=== PATIENT | male | born 1955 | race Caucasian/White ===

== ENCOUNTER 2017-10-09 06:01 | Emergency (ER) | payer OTHER ==
[2017-10-09] MEDS ORDERED: methylPREDNISolone SOD SUCCI 125 MG/2 ML VIAL IM ONE (06:34)
[2017-10-09] MEDS ORDERED: FAMOTIDINE 20 MG TAB PO STA (06:34)
--- NOTE | 2017-10-09 06:39 | ED ---
General Adult HPI - General Chief complaint: Allergic Reaction Stated complaint: Poss Allergic Reaction Time Seen by Provider: 10/09/17 06:23 Source: patient, family Mode of arrival: ambulatory Limitations: no limitations - History of Present Illness Initial comments: Patient is a pleasant 62-year-old male presenting to the emergency department with rash. Onset was around 3:30. Patient has noticed some swelling of his hands as well as rash on his arms. states it does itch. Patient took 2 Benadryl and states it is starting to improve. Patient denies any dyspnea. Patient states there may be some mild swelling of his lower lip and family is in agreement. No throat swelling. - Related Data Previous Rx's Medication Instructions Recorded predniSONE 20 mg PO BID #10 tab 10/09/17 Allergies Allergy/AdvReac Type Severity Reaction Status Date / Time DARRICK Inhibitors Allergy Swelling Verified 10/09/17 06:08 Penicillins Allergy Unknown Verified 10/09/17 06:07 Review of Systems ROS Statement: Those systems with pertinent positive or pertinent negative responses have been documented in the HPI. ROS Other: All systems not noted in ROS Statement are negative. Constitutional: Denies: fever Eyes: Denies: eye pain ENT: Denies: ear pain Respiratory: Denies: cough, dyspnea Cardiovascular: Denies: chest pain Endocrine: Denies: fatigue Gastrointestinal: Denies: abdominal pain Genitourinary: Denies: dysuria Musculoskeletal: Denies: back pain Skin: Reports: rash Neurological: Denies: weakness Past Medical History Past Medical History: Diabetes Mellitus, Hypertension History of Any Multi-Drug Resistant Organisms: None Reported Past Surgical History: Appendectomy, Orthopedic Surgery Past Psychological History: No Psychological Hx Reported Smoking Status: Current every day smoker Past Alcohol Use History: Occasional Past Drug Use History: None Reported General Exam Limitations: no limitations General appearance: alert, in no apparent distress Head exam: Present: atraumatic Eye exam: Present: normal appearance, PERRL ENT exam: Present: normal oropharynx, other (Mild edema of the lower lip. No swelling of the tongue or throat.) Neck exam: Present: normal inspection Respiratory exam: Present: normal lung sounds bilaterally Cardiovascular Exam: Present: regular rate, normal rhythm GI/Abdominal exam: Present: soft. Absent: tenderness Extremities exam: Present: other (Mild swelling bilateral hands with mild erythema. There is urticarial rash of the forearms, mild) Back exam: Present: normal inspection Neurological exam: Present: alert Psychiatric exam: Present: normal affect, normal mood Skin exam: Present: urticaria (Bilateral forearms, mild) Course Vital Signs 10/09/17 06:02 Temperature 97.3 F L Pulse Rate 87 Respiratory 18 Rate Blood Pressure 136/79 O2 Sat by Pulse 97 Oximetry Disposition Clinical Impression: Allergic reaction Disposition: HOME SELF-CARE Condition: Stable Instructions: Angioedema (ED), Urticaria (ED) Additional Instructions: Please follow-up with primary care physician in the next day or 2 for recheck. Continue [id number] Benadryl 4 times daily for the next 5 days. Return for increased swelling, swelling of the tongue or throat, difficulty breathing, worsening symptoms or other concerns. Prescriptions: predniSONE 20 mg PO BID #10 tab Referrals: Viet Mireles DO [Primary Care Provider] - 1-2 days Time of Disposition: 06:39
[2017-10-09 07:17] VITALS: BP 138/77; PULSE 81; RESP 19; TEMP 97.6
== END 2017-10-09 07:21 | disposition home or self-care (01) ==
LOC: EC 06:01
DX: T78.40XA Allergy, unspecified, initial encounter (principal); F17.200 Nicotine dependence, unspecified, uncomplicated; Z88.0 Allergy status to penicillin; Z88.8 Allergy status to other drugs, medicaments and biological substances
CPT/HCPCS: 99283; 96372; J2930

== ENCOUNTER 2018-12-20 14:41 | Emergency (ER) | payer OTHER ==
[2018-12-20 14:46] VITALS: BP 139/73; PULSE 84; RESP 18; TEMP 97.9
--- NOTE | 2018-12-20 15:12 | ED ---
General Adult HPI - General Chief complaint: Wound/Laceration Stated complaint: infection on leg Time Seen by Provider: 12/20/18 14:49 Source: patient, RN notes reviewed Mode of arrival: ambulatory Limitations: no limitations - History of Present Illness Initial comments: 63-year-old male with a past medical history of diabetes, hypertension presents to the emergency department for a chief complaint of right leg injury. Patient states that one week ago on Thursday he was at work when he fell and hit his leg against a piece of machinery. Patient states this caused a small abrasion. Patient states that he has been keeping it covered and applying bacitracin to the area. Patient saw his primary care provider 3 days ago for this. He thought it was infected and was started on Bactrim. Patient states it is already on the area and does not seem to be healing. Patient denies fevers or chills. He denies spreading or streaking redness. Denies any pain ambulating on the right leg.Patient has no other complaints at this time including shortness of breath, chest pain, abdominal pain, nausea or vomiting, headache, or visual changes. - Related Data Previous Rx's Medication Instructions Recorded predniSONE 20 mg PO BID #10 tab 10/09/17 Cephalexin [Keflex] 500 mg PO Q6HR 7 Days cap 12/20/18 Allergies Allergy/AdvReac Type Severity Reaction Status Date / Time DARRICK Inhibitors Allergy Swelling Verified 10/09/17 06:08 Penicillins Allergy Unknown Verified 10/09/17 06:07 Review of Systems ROS Statement: Those systems with pertinent positive or pertinent negative responses have been documented in the HPI. ROS Other: All systems not noted in ROS Statement are negative. Past Medical History Past Medical History: Diabetes Mellitus, Hypertension History of Any Multi-Drug Resistant Organisms: None Reported Past Surgical History: Appendectomy, Orthopedic Surgery Past Psychological History: No Psychological Hx Reported Smoking Status: Current every day smoker Past Alcohol Use History: Occasional Past Drug Use History: None Reported General Exam Limitations: no limitations General appearance: alert, in no apparent distress Head exam: Present: atraumatic, normocephalic, normal inspection Eye exam: Present: normal appearance, PERRL, EOMI. Absent: scleral icterus, conjunctival injection, periorbital swelling ENT exam: Present: normal exam, mucous membranes moist Neck exam: Present: normal inspection, full ROM. Absent: tenderness, meningismus, lymphadenopathy Respiratory exam: Present: normal lung sounds bilaterally. Absent: respiratory distress, wheezes, rales, rhonchi, stridor Cardiovascular Exam: Present: regular rate, normal rhythm, normal heart sounds. Absent: systolic murmur, diastolic murmur, rubs, gallop, clicks Extremities exam: Present: full ROM (full ROM in the ankle and knee of the RLE), normal capillary refill (cap refill < 2 seconds, dp pulse 2+ in the RLE), other (Patient has a small 2 cm x 1 cm abrasion over the distal right lower leg. There is a 5 cm x 5 cm area of surrounding erythema however this appears likely to be more granulation tissue rather than infection. It is somewhat warm over the area.). Absent: tenderness (no significant tenderness noted in the RLE), pedal edema, joint swelling, calf tenderness Neurological exam: Present: alert, oriented X3, CN II-XII intact Psychiatric exam: Present: normal affect, normal mood Course Vital Signs 12/20/18 14:42 Temperature 97.9 F Pulse Rate 84 Respiratory 18 Rate Blood Pressure 139/73 O2 Sat by Pulse 98 Oximetry Medical Decision Making - Medical Decision Making 63-year-old male presents to the emergency department for chief clean of abrasion of the right lower extremity times one week. Patient hit his leg against a piece of equipment. Patient has had Bactrim for 3 days because of the erythema surrounding the area. On exam patient does have a 5 cm x 5 cm area of erythema with 1 cm x 2 cm abrasion. This is likely more granulation tissue than infection. Patient is keeping the area covered with bacitracin applied which is likely contributing to this. Discussed with patient that I will add Keflex to cover any cellulitic component. However instructed patient to keep the area exposed to her stomach and dry and healed. Discussed that as patient is diabetic and this is lower in his calf he may have the start of a chronic wound that he will need to monitor this and follow-up with primary care closely to be seen at wound care. Discussed watching for any spreading or streaking redness, drainage, or fevers and returning here if this occurs. Disposition Clinical Impression: Abrasion, Cellulitis Disposition: HOME SELF-CARE Condition: Good Instructions (If sedation given, give patient instructions): Abrasion (ED) Additional Instructions: Please keep the area clean and dry. Try to leave it open to air so it can heal. Take Keflex as directed. Follow-up with primary care in 1-2 days. If he notices spreading redness, streaking redness, fevers, or any other worsening symptoms and return here to the emergency department. Prescriptions: Cephalexin [Keflex] 500 mg PO Q6HR 7 Days cap Is patient prescribed a controlled substance at d/c from ED?: No Referrals: Viet Mireles DO [Primary Care Provider] - 1-2 days Time of Disposition: 15:09
== END 2018-12-20 15:17 | disposition home or self-care (01) ==
LOC: EC 14:41
DX: S80.812A Abrasion, left lower leg, initial encounter (principal); L03.116 Cellulitis of left lower limb; E11.9 Type 2 diabetes mellitus without complications; I10 Essential (primary) hypertension; F17.200 Nicotine dependence, unspecified, uncomplicated; Z88.0 Allergy status to penicillin; Z88.8 Allergy status to other drugs, medicaments and biological substances; W45.8XXA Other foreign body or object entering through skin, initial encounter; Y92.69 Other specified industrial and construction area as the place of occurrence of the external cause; Y99.0 Civilian activity done for income or pay
CPT/HCPCS: 99283

== ENCOUNTER 2020-06-04 15:39 | Inpatient (IN) | payer OTHER, MEDICARE ==
[2020-06-04] MEDS ORDERED: SODIUM CHLORIDE 0.9% 500 ML 500 ML IV STA (16:15)
[2020-06-04] MEDS ORDERED: metroNIDAZOLE-NS PMX 500 MG in SALINE 1 100ML.BAG IVPB STA (16:16)
--- NOTE | 2020-06-04 16:46 | ED ---
General Adult HPI - General Chief complaint: Abdominal Pain Stated complaint: abd pain Time Seen by Provider: 06/04/20 16:10 Source: patient Mode of arrival: ambulatory Limitations: no limitations - History of Present Illness Initial comments: Dictation was produced using [employer] dictation software. please excuse any grammatical, word or spelling errors. This patient was cared for during a federal and state declared state of emergency secondary to Covid 19 Chief Complaint: 65-year-old male sent in by primary care physician for concerns of are serrated versus regulated hernia History of Present Illness: 65-year-old male he has history of several years with small periumbilical hernia. Since of last week patient reports that his hernia acutely became larger. He noted that the skin but apparently became red. Patient complains of pain whenever you palpate the area. Denies any nausea or vomiting. Aside from the site of interest patient denies any other abdominal pain. The ROS documented in this emergency department record has been reviewed and confirmed by me. Those systems with pertinent positive or negative responses have been documented in the HPI. All other systems are other negative and/or noncontributory. PHYSICAL EXAM: General Impression: Alert and oriented x3, not in acute distress HEENT: Normocephalic atraumatic, extra-ocular movements intact, pupils equal and reactive to light bilaterally, mucous membranes moist. Cardiovascular: Heart regular rate and rhythm Chest: Able to complete full sentences, no retractions, no tachypnea Abdomen: abdomen soft, non-distended, no organomegaly. Large broad-based hernia that is a reducible in the supraumbilical area Musculoskeletal: Pulses present and equal in all extremities, no peripheral edema Motor: no focal deficits noted Neurological: CN II-XII grossly intact, no focal motor or sensory deficits noted Skin: Intact with no visualized rashes Psych: Normal affect and mood ED course: 65-year-old male presents with clinical presentation consistent with incarcerated versus regulated hernia. Vital signs upon arrival are within acceptable limits. Labs are obtained showing no acute processes. No lactic acidosis. Computed tomography scan of abdomen and pelvis was obtained showing fat-containing incarcerated umbilical hernia with extensive fat stranding with surrounding subcutaneous edema consistent with cellulitis. Patient given ceftriaxone and Flagyl. Case discussed with on-call surgery Dr. Rodrigues. Dr. Rodrigues reports no immediate indication for surgical intervention at this time. He is agreeable for having patient admitted. Dr. Rose will evaluate patient first in the morning tomorrow. Patient be admitted to his service. - Related Data Previous Rx's Medication Instructions Recorded predniSONE [Deltasone] 20 mg PO BID #10 tab 10/09/17 Cephalexin [Keflex] 500 mg PO Q6HR 7 Days cap 12/20/18 Allergies Allergy/AdvReac Type Severity Reaction Status Date / Time DARRICK Inhibitors Allergy Swelling Verified 06/04/20 15:47 Penicillins Allergy Unknown Verified 06/04/20 15:47 Review of Systems ROS Statement: Those systems with pertinent positive or pertinent negative responses have been documented in the HPI. ROS Other: All systems not noted in ROS Statement are negative. Past Medical History Past Medical History: Diabetes Mellitus, Hypertension History of Any Multi-Drug Resistant Organisms: None Reported Past Surgical History: Appendectomy, Orthopedic Surgery Past Psychological History: No Psychological Hx Reported Smoking Status: Current every day smoker Past Alcohol Use History: Occasional Past Drug Use History: None Reported General Exam Limitations: no limitations Course Vital Signs 06/04/20 15:44 Temperature 98.1 F Pulse Rate 76 Respiratory 18 Rate Blood Pressure 142/80 O2 Sat by Pulse 98 Oximetry Medical Decision Making - Lab Data Result diagrams: 06/04/20 16:15 06/04/20 16:15 Lab Results 06/04/20 06/04/20 06/04/20 Range/Units 16:15 16:15 16:15 WBC 9.6 (3.8-10.6) k/uL RBC 4.90 (4.30-5.90) m/uL Hgb 15.9 (13.0-17.5) gm/dL Hct 47.2 (39.0-53.0) % MCV 96.3 (80.0-100.0) fL MCH 32.5 (25.0-35.0) pg MCHC 33.7 (31.0-37.0) g/dL RDW 12.3 (11.5-15.5) % Plt Count 229 (150-450) k/uL Neutrophils % 55 % Lymphocytes % 28 % Monocytes % 5 % Eosinophils % 9 % Basophils % 1 % Neutrophils # 5.3 (1.3-7.7) k/uL Lymphocytes # 2.7 (1.0-4.8) k/uL Monocytes # 0.5 (0-1.0) k/uL Eosinophils # 0.9 H (0-0.7) k/uL Basophils # 0.1 (0-0.2) k/uL PT 9.6 (9.0-12.0) sec INR 0.9 (<1.2) APTT 25.7 (22.0-30.0) sec Sodium (137-145) mmol/L Potassium (3.5-5.1) mmol/L Chloride (98-107) mmol/L Carbon Dioxide (22-30) mmol/L Anion Gap mmol/L BUN (9-20) mg/dL Creatinine (0.66-1.25) mg/dL Est GFR (CKD-EPI)AfAm (>60 ml/min/1.73 sqM) Est GFR (CKD-EPI)NonAf (>60 ml/min/1.73 sqM) Glucose (74-99) mg/dL Plasma Lactic Acid Oumar (0.7-2.0) mmol/L Calcium (8.4-10.2) mg/dL Total Bilirubin (0.2-1.3) mg/dL AST (17-59) U/L ALT (4-49) U/L Alkaline Phosphatase (38-126) U/L Total Protein (6.3-8.2) g/dL Albumin (3.5-5.0) g/dL Lipase (23-300) U/L Urine Color Yellow Urine Appearance Clear (Clear) Urine pH 5.5 (5.0-8.0) Ur Specific Rowe 1.016 (1.001-1.035) Urine Protein Negative (Negative) Urine Glucose (UA) Negative (Negative) Urine Ketones Negative (Negative) Urine Blood Negative (Negative) Urine Nitrite Negative (Negative) Urine Bilirubin Negative (Negative) Urine Urobilinogen <2.0 (<2.0) mg/dL Ur Leukocyte Esterase Negative (Negative) 06/04/20 06/04/20 Range/Units 16:15 16:15 WBC (3.8-10.6) k/uL RBC (4.30-5.90) m/uL Hgb (13.0-17.5) gm/dL Hct (39.0-53.0) % MCV (80.0-100.0) fL MCH (25.0-35.0) pg MCHC (31.0-37.0) g/dL RDW (11.5-15.5) % Plt Count (150-450) k/uL Neutrophils % % Lymphocytes % % Monocytes % % Eosinophils % % Basophils % % Neutrophils # (1.3-7.7) k/uL Lymphocytes # (1.0-4.8) k/uL Monocytes # (0-1.0) k/uL Eosinophils # (0-0.7) k/uL Basophils # (0-0.2) k/uL PT (9.0-12.0) sec INR (<1.2) APTT (22.0-30.0) sec Sodium 136 L (137-145) mmol/L Potassium 4.3 (3.5-5.1) mmol/L Chloride 104 (98-107) mmol/L Carbon Dioxide 25 (22-30) mmol/L Anion Gap 7 mmol/L BUN 15 (9-20) mg/dL Creatinine 0.81 (0.66-1.25) mg/dL Est GFR (CKD-EPI)AfAm >90 (>60 ml/min/1.73 sqM) Est GFR (CKD-EPI)NonAf >90 (>60 ml/min/1.73 sqM) Glucose 124 H (74-99) mg/dL Plasma Lactic Acid Oumar 1.2 (0.7-2.0) mmol/L Calcium 9.4 (8.4-10.2) mg/dL Total Bilirubin 0.9 (0.2-1.3) mg/dL AST 42 (17-59) U/L ALT 29 (4-49) U/L Alkaline Phosphatase 55 (38-126) U/L Total Protein 7.2 (6.3-8.2) g/dL Albumin 4.0 (3.5-5.0) g/dL Lipase 123 (23-300) U/L Urine Color Urine Appearance (Clear) Urine pH (5.0-8.0) Ur Specific Rowe (1.001-1.035) Urine Protein (Negative) Urine Glucose (UA) (Negative) Urine Ketones (Negative) Urine Blood (Negative) Urine Nitrite (Negative) Urine Bilirubin (Negative) Urine Urobilinogen (<2.0) mg/dL Ur Leukocyte Esterase (Negative) Disposition Clinical Impression: Incarcerated hernia Disposition: ADMITTED IP TO THIS HOSP Condition: Fair Referrals: Viet Mireles DO [Primary Care Provider] - 1-2 days Decision Time: 19:22
[2020-06-04 16:55] LABS: Basophils # (A) 0.1 k/uL (0-0.2); Basophils % (A) 1 %; Eosinophils # (A) 0.9 k/uL (0-0.7); Eosinophils % (A) 9 %; HCT 47.2 % (39.0-53.0); HGB 15.9 gm/dL (13.0-17.5); Lymphocytes # (A) 2.7 k/uL (1.0-4.8); Lymphocytes % (A) 28 %; MCH 32.5 pg (25.0-35.0); MCHC 33.7 g/dL (31.0-37.0); MCV 96.3 fL (80.0-100.0); Mean Platelet Volume 7.7; Monocytes # (A) 0.5 k/uL (0-1.0); Monocytes % (A) 5 %; Neutrophils # (A) 5.3 k/uL (1.3-7.7); Neutrophils % (A) 55 %; Platelet Count 229 k/uL (150-450); RDW 12.3 % (11.5-15.5); WBC 9.6 k/uL (3.8-10.6)
[2020-06-04 16:56] LABS: Appearance,Urine Clear (Clear); Bilirubin,Urine Negative (Negative); Blood,Urine Negative (Negative); Color,Urine Yellow; Glucose,Urine (UA) Negative (Negative); Ketones,Urine Negative (Negative); Leukocyte Esterase,Urine Negative (Negative); Nitrite,Urine Negative (Negative); PH, Urine 5.5 (5.0-8.0); Protein,Urine Negative (Negative); Specific Gravity,Urine 1.016 (1.001-1.035); Urobilinogen,Urine <2.0 mg/dL (<2.0)
[2020-06-04 17:10] LABS: INR 0.9 (<1.2); Partial Thromboplastin Time 25.7 sec (22.0-30.0); Prothrombin Time 9.6 sec (9.0-12.0)
[2020-06-04 17:14] LABS: ALT 29 U/L (4-49); AST 42 U/L (17-59); African American GFR (CKD) >90 (>60 ml/min/1.73 sqM); Alkaline Phosphatase 55 U/L (38-126); Anion Gap 7 mmol/L; Blood Urea Nitrogen 15 mg/dL (9-20); Calcium 9.4 mg/dL (8.4-10.2); Carbon Dioxide 25 mmol/L (22-30); Chloride 104 mmol/L (98-107); Glucose 124 mg/dL (74-99); Lipase 123 U/L (23-300); Non-African American GFR(CKD) >90 (>60 ml/min/1.73 sqM); Sodium 136 mmol/L (137-145); Total Bilirubin 0.9 mg/dL (0.2-1.3); Total Protein 7.2 g/dL (6.3-8.2)
[2020-06-04 17:21] LABS: Potassium 4.3 mmol/L (3.5-5.1)
--- NOTE | 2020-06-04 18:36 | CT ---
EXAMINATION TYPE: CT abdomen pelvis w con DATE OF EXAM: 06/04/2020 COMPARISON: 03/24/2011 HISTORY: Umbilical swelling and redness. CT DLP: 2920.4 mGycm Automated exposure control for dose reduction was used. CONTRAST: Performed with IV Contrast, patient injected with 100 mL of Isovue 300. There is some mild atelectasis at the lung bases. Heart size is normal. There is no pericardial effus ion. There is no pleural effusion. Liver spleen stomach pancreas appear normal. Bile ducts are not dilated. There are numerous calcified gallstones. The kidneys have normal size. There is no adrenal mass. There is large left side renal p arapelvic cyst measuring 4.3 cm. Delayed images show fairly normal renal excretion. There is no hydro nephrosis. There is no adrenal mass. There is no retroperitoneal adenopathy. Bladder distends smoothly. There is no inguinal hernia. There is no free fluid in the pelvis. There are clips apparently from appendectomy. Appendix is not seen. There are multiple surgical clips in the right lower quadrant. There is fat containing incarcerated umbilical hernia that measures 7 cm in diameter. The opening on the anterior abdominal wall is 2.5 cm. There is some fat stranding within the herniated fat. There is subcutaneous edema around the hernia. Fat stranding extends into the omental fat in the anterior abd omen at the helical hernia site. There is no mesenteric edema. There is no ascites or free air. There is no bowel obstruction. Lumbar vertebra have normal alignment. There is 35% wedging of T12 vertebral body. There is some oste openia. There is osteosclerosis on both sides of the L3-4 disc. There is moderate hypertrophic anteri or spurring at L3-4. The posterior elements are intact. I see no focal bone destruction. The bony pel vis is intact. Hip joints are intact. IMPRESSION: Fat-containing incarcerated umbilical hernia with extensive fat stranding with surrounding subcutaneo us edema consistent with cellulitis and panniculitis. This is a change compared to old exam. Umbilica l hernia much larger than old exam. Calcified gallstones increased compared to old exam. Left renal parapelvic cyst increased in size com pared to old exam.
[2020-06-04] MEDS ORDERED: ACETAMINOPHEN TAB 325 MG TAB PO PRN (19:20)
[2020-06-04] MEDS ORDERED: MORPHINE SULFATE 4 MG/ML SYRINGE IV PRN (19:20)
[2020-06-04] MEDS ORDERED: NALOXONE 0.4 MG/ML 1 ML VIAL IV PRN (19:20)
[2020-06-04] MEDS: SODIUM CHLORIDE 0.9% 1,000 ML IV SCH (20:51)
[2020-06-05] MEDS: SODIUM CHLORIDE 0.9% 1,000 ML IV SCH ×2 (04:01→16:09)
[2020-06-05 06:42] LABS: Glucose,Whole Blood 103 mg/dL (75-99)
[2020-06-05] MEDS: metroNIDAZOLE-NS PMX 500 MG in SALINE 1 100ML.BAG IVPB SCH ×2 (09:48→17:04)
[2020-06-05 09:59] LABS: Basophils % (A) 0 %; Eosinophils # (A) 0.8 k/uL (0-0.7); Eosinophils % (A) 9 %; HCT 48.4 % (39.0-53.0); HGB 15.4 gm/dL (13.0-17.5); Lymphocytes # (A) 2.1 k/uL (1.0-4.8); Lymphocytes % (A) 25 %; MCH 31.8 pg (25.0-35.0); MCHC 31.7 g/dL (31.0-37.0); MCV 100.3 fL (80.0-100.0); Mean Platelet Volume 7.9; Monocytes # (A) 0.5 k/uL (0-1.0); Monocytes % (A) 5 %; Neutrophils # (A) 4.9 k/uL (1.3-7.7); Neutrophils % (A) 58 %; Platelet Count 196 k/uL (150-450); RBC 4.83 m/uL (4.30-5.90); RDW 12.8 % (11.5-15.5); WBC 8.4 k/uL (3.8-10.6)
[2020-06-05 10:48] LABS: Hemoglobin A1C 6.4 % (4.0-6.0)
[2020-06-05 11:21] LABS: Glucose,Whole Blood 125 mg/dL (75-99)
--- NOTE | 2020-06-05 12:36 | P.GSCN ---
History of Present Illness Consult date: 06/05/20 History of present illness: CHIEF COMPLAINT: increasing in size of umbilical hernia HISTORY OF PRESENT ILLNESS: This is a 65-year-old male with a known history of diabetes, hypertension, hypothyroidism, nicotine dependence and prior appendectomy. Patient presents to the emergency room with complaints of worsening his umbilical hernia. He's had his umbilical hernia for a couple of years. He says over the last 5 days he's had increase in size of the umbilical hernia. Also there is been evidence of redness around the hernia. He denies any nausea or vomiting. He's been having regular bowel movements. He is afebrile. CAT scan did show fat-containing incarcerated Umbilical hernia With extensive fat stranding with surrounding subcutaneous edema consistent with cellulitis and panniculitis. PAST MEDICAL HISTORY: See list. PAST SURGICAL HISTORY: See list. MEDICATIONS: See list. ALLERGIES: See list. SOCIAL HISTORY: No illicit drug use. REVIEW OF SYSTEMS: CONSTITUTIONAL: Denies fever or chills. HEENT: Denies blurred vision, vision changes, or eye pain. Denies hemoptysis CARDIOVASCULAR: Denies chest pain or pressure. RESPIRATORY: No shortness of breath. GASTROINTESTINAL: See HPI for pertinent findings HEMATOLOGIC: Denies bleeding disorders. GENITOURINARY: Denies any blood in urine or increased urinary frequency. SKIN: Denies pruitis. Denies rash. PHYSICAL EXAM: VITAL SIGNS: Reviewed GENERAL: Well-developed in no acute distress. HEENT: No sclera icterus. Extraocular movements grossly intact. Moist buccal mucosa. Head is atraumatic, normocephalic. No nasal drainage. ABDOMEN: Soft. Obese. Nondistended. Patient has evidence of a umbilical hernia. Unable to reduce. There is evidence of cellulitis surrounding the hernia NEUROLOGIC: Alert and oriented. Cranial nerves II through XII grossly intact. LABORATORY DATA: WBC 8.4 A1c 6.4 IMAGING: CAT scan did show fat-containing incarcerated Umbilical hernia With extensive fat stranding with surrounding subcutaneous edema consistent with cellulitis and panniculitis. ASSESSMENT: 1. Fat-containing incarcerated umbilical hernia With cellulitis and panniculitis PLAN: -Patient is scheduled for open repair of incarcerated umbilical hernia with Dr. Rodrigues tomorrow -Continue antibiotics Rocephin and Flagyl -Continue IV fluids -Start patient on a regular diet and then nothing by mouth after midnight Physician Inoculator note has been reviewed by physician. Signing provider agrees with the documented findings, assessment, and plan of care. Past Medical History Past Medical History: Diabetes Mellitus, Hypertension History of Any Multi-Drug Resistant Organisms: None Reported Past Surgical History: Appendectomy, Orthopedic Surgery Past Psychological History: No Psychological Hx Reported Smoking Status: Current every day smoker Past Alcohol Use History: Occasional Past Drug Use History: None Reported - Past Family History Mother History Unknown: Yes Medications and Allergies Home Medications Medication Instructions Recorded Confirmed Type Aspirin EC [Ecotrin Low Dose] 81 mg PO DAILY 06/04/20 06/04/20 History Atorvastatin [Lipitor] 20 mg PO HS 06/04/20 06/04/20 History Cetirizine HCl [Zyrtec] 10 mg PO DAILY 06/04/20 06/04/20 History Chlorthalidone 25 mg PO DAILY 06/04/20 06/04/20 History Escitalopram Oxalate [Lexapro] 10 mg PO DAILY 06/04/20 06/04/20 History Levothyroxine Sodium [Synthroid] 75 mcg PO DAILY 06/04/20 06/04/20 History Omeprazole 20 mg PO DAILY 06/04/20 06/04/20 History metFORMIN HCL [Glucophage] 1,000 mg PO BID 06/04/20 06/04/20 History Allergies Allergy/AdvReac Type Severity Reaction Status Date / Time DARRICK Inhibitors Allergy Swelling Verified 06/04/20 19:58 Penicillins Allergy Unknown Verified 06/04/20 19:58 Surgical - Exam Vital Signs Temp Pulse Resp BP Pulse Ox 98.1 F 76 18 142/80 98 06/04/20 15:44 06/04/20 15:44 06/04/20 15:44 06/04/20 15:44 06/04/20 15:44 Results - Labs 06/05/20 06:14 06/04/20 16:15 Abnormal Lab Results - Last 24 Hours (Table) 06/04/20 06/04/20 06/05/20 Range/Units 16:15 16:15 06:14 MCV (80.0-100.0) fL Eosinophils # 0.9 H (0-0.7) k/uL Sodium 136 L (137-145) mmol/L Glucose 124 H (74-99) mg/dL POC Glucose (mg/dL) (75-99) mg/dL Hemoglobin A1c 6.4 H (4.0-6.0) % 06/05/20 06/05/20 06/05/20 Range/Units 06:14 06:41 11:20 MCV 100.3 H (80.0-100.0) fL Eosinophils # 0.8 H (0-0.7) k/uL Sodium (137-145) mmol/L Glucose (74-99) mg/dL POC Glucose (mg/dL) 103 H 125 H (75-99) mg/dL Hemoglobin A1c (4.0-6.0) % Diabetes panel 06/04/20 06/05/20 Range/Units 16:15 06:14 Sodium 136 L (137-145) mmol/L Potassium 4.3 (3.5-5.1) mmol/L Chloride 104 (98-107) mmol/L Carbon Dioxide 25 (22-30) mmol/L BUN 15 (9-20) mg/dL Creatinine 0.81 (0.66-1.25) mg/dL Glucose 124 H (74-99) mg/dL Hemoglobin A1c 6.4 H (4.0-6.0) % Calcium 9.4 (8.4-10.2) mg/dL AST 42 (17-59) U/L ALT 29 (4-49) U/L Alkaline Phosphatase 55 (38-126) U/L Total Protein 7.2 (6.3-8.2) g/dL Albumin 4.0 (3.5-5.0) g/dL Calcium panel 06/04/20 Range/Units 16:15 Calcium 9.4 (8.4-10.2) mg/dL Albumin 4.0 (3.5-5.0) g/dL Pituitary panel 06/04/20 Range/Units 16:15 Sodium 136 L (137-145) mmol/L Potassium 4.3 (3.5-5.1) mmol/L Chloride 104 (98-107) mmol/L Carbon Dioxide 25 (22-30) mmol/L BUN 15 (9-20) mg/dL Creatinine 0.81 (0.66-1.25) mg/dL Glucose 124 H (74-99) mg/dL Calcium 9.4 (8.4-10.2) mg/dL Adrenal panel 10/12/20 Range/Units 16:15 Sodium 136 L (137-145) mmol/L Potassium 4.3 (3.5-5.1) mmol/L Chloride 104 (98-107) mmol/L Carbon Dioxide 25 (22-30) mmol/L BUN 15 (9-20) mg/dL Creatinine 0.81 (0.66-1.25) mg/dL Glucose 124 H (74-99) mg/dL Calcium 9.4 (8.4-10.2) mg/dL Total Bilirubin 0.9 (0.2-1.3) mg/dL AST 42 (17-59) U/L ALT 29 (4-49) U/L Alkaline Phosphatase 55 (38-126) U/L Total Protein 7.2 (6.3-8.2) g/dL Albumin 4.0 (3.5-5.0) g/dL
--- NOTE | 2020-06-05 14:46 | P.CONS ---
History of Present Illness - Reason for Consult recommendations regarding antibiotics - History of Present Illness patient is a pleasant 65-year-old male was admitted for medical hernia and possible bronchitis patient does have clear cellulitis with the redness and localized of temperature patient was started on Rocephin and metronidazole Rocephin will be switched to cefazolin for better coverage for skin organisms mostly streptococci.patient denied any fever chills patient denied any nausea vomiting diarrhea, his hemoglobin A1c is 6.4 receiving IV fluids and disease of around saturating at 91% on room air doesn't appear to be in respiratory distress, patient had a CT of the abdomen which showed fat-containing incarcerated a little hernia with extensive fat stranding and subcutaneous edema consistent with cellulitis and panic colitis. Calcified gallstone is also found as an incidental finding. Review of Systems REVIEW OF SYSTEMS: CONSTITUTIONAL: No fever, no malaise, no fatigue. HEENT: No recent visual problems or hearing problems. Denied any sore throat. CARDIOVASCULAR: No chest pain, orthopnea, PND, no palpitations, no syncope. PULMONARY: No shortness of breath, no cough, no hemoptysis. GASTROINTESTINAL: No diarrhea, no nausea, no vomiting, NEUROLOGICAL: No headaches, no weakness, no numbness. HEMATOLOGICAL: Denies any bleeding or petechiae. GENITOURINARY: Denies any burning micturition, frequency, or urgency. MUSCULOSKELETAL/RHEUMATOLOGICAL: Denies any joint pain, swelling, or any muscle pain. ENDOCRINE: Denies any polyuria or polydipsia. The rest of the 14-point review of systems is negative. Past Medical History Past Medical History: Diabetes Mellitus, Hypertension History of Any Multi-Drug Resistant Organisms: None Reported Past Surgical History: Appendectomy, Orthopedic Surgery Past Psychological History: No Psychological Hx Reported Smoking Status: Current every day smoker Past Alcohol Use History: Occasional Past Drug Use History: None Reported - Past Family History Mother History Unknown: Yes Medications and Allergies Home Medications Medication Instructions Recorded Confirmed Type Aspirin EC [Ecotrin Low Dose] 81 mg PO DAILY 06/04/20 06/04/20 History Atorvastatin [Lipitor] 20 mg PO HS 06/04/20 06/04/20 History Cetirizine HCl [Zyrtec] 10 mg PO DAILY 06/04/20 06/04/20 History Chlorthalidone 25 mg PO DAILY 06/04/20 06/04/20 History Escitalopram Oxalate [Lexapro] 10 mg PO DAILY 06/04/20 06/04/20 History Levothyroxine Sodium [Synthroid] 75 mcg PO DAILY 06/04/20 06/04/20 History Omeprazole 20 mg PO DAILY 06/04/20 06/04/20 History metFORMIN HCL [Glucophage] 1,000 mg PO BID 06/04/20 06/04/20 History Allergies Allergy/AdvReac Type Severity Reaction Status Date / Time DARRICK Inhibitors Allergy Swelling Verified 06/04/20 19:58 Penicillins Allergy Unknown Verified 06/04/20 19:58 Physical Exam Vitals: Vital Signs Temp Pulse Pulse Resp BP BP Pulse Ox 06/05/20 08:53 66 17 06/05/20 06:57 98.5 F 66 17 126/80 91 L 06/05/20 01:45 97.4 F L 64 18 126/72 93 L 06/04/20 21:57 97.9 F 63 18 114/68 94 L 06/04/20 15:44 98.1 F 76 18 142/80 98 Intake and Output 06/04/20 06/05/20 06/05/20 22:59 06:59 14:59 Other: # Voids 1 1 Weight 129.727 kg PHYSICAL EXAMINATION: GENERAL: The patient is alert and oriented x3, not in any acute distress.bese HEENT: Pupils are round and equally reacting to light. EOMI. No scleral icterus. No conjunctival pallor. Normocephalic, atraumatic. No pharyngeal erythema. No thyromegaly. CARDIOVASCULAR: S1 and S2 present. No murmurs, rubs, or gallops. PULMONARY: Chest is clear to auscultation, no wheezing or crackles. ABDOMEN:patient has a umbilical hernia and below the hernia there is significant redness local is of temperature, cellulitis MUSCULOSKELETAL: No joint swelling or deformity. EXTREMITIES: No cyanosis, clubbing, or pedal edema. NEUROLOGICAL: Gross neurological examination did not reveal any focal deficits. SKIN: cellulitis in the umbilicus and infraumbilical area Results CBC & Chem 7: 06/05/20 06:14 06/04/20 16:15 Labs: Abnormal Lab Results - Last 24 Hours (Table) 06/04/20 06/04/20 06/05/20 Range/Units 16:15 16:15 06:14 MCV (80.0-100.0) fL Eosinophils # 0.9 H (0-0.7) k/uL Sodium 136 L (137-145) mmol/L Glucose 124 H (74-99) mg/dL POC Glucose (mg/dL) (75-99) mg/dL Hemoglobin A1c 6.4 H (4.0-6.0) % 06/05/20 06/05/20 06/05/20 Range/Units 06:14 06:41 11:20 MCV 100.3 H (80.0-100.0) fL Eosinophils # 0.8 H (0-0.7) k/uL Sodium (137-145) mmol/L Glucose (74-99) mg/dL POC Glucose (mg/dL) 103 H 125 H (75-99) mg/dL Hemoglobin A1c (4.0-6.0) % Assessment and Plan Plan: -cellulitis and panniculitis of umblical area and umblical hernia: Patient will undergo surgical intervention from medical hernia tomorrow patient antibiotics will be switched to cefazolin and metronidazole. Patient will be can you done IV fluids monitoring of his respiratory status -type 2 diabetes mellitus patient was started on sliding scale insulin Hypertension - nicotine abuse: Counseling was provided -DVT prophylaxis with Lovenox
[2020-06-05] MEDS: ceFAZolin 3 GM in SODIUM CHLORIDE 0.9% 100 ML IVPB SCH ×2 (16:06→23:56)
[2020-06-05] MEDS: INSULIN ASPART (NovoLOG) 100 UNIT/ML VIAL SQ SCH ×2 (17:02→21:35)
[2020-06-05 17:04] LABS: Glucose,Whole Blood 123 mg/dL (75-99)
[2020-06-05 20:26] LABS: Glucose,Whole Blood 109 mg/dL (75-99)
[2020-06-05] MEDS: ATORVASTATIN 20 MG TAB PO SCH (21:16)
[2020-06-06] MEDS: metroNIDAZOLE-NS PMX 500 MG in SALINE 1 100ML.BAG IVPB SCH ×3 (01:01→15:54)
[2020-06-06] MEDS: LEVOTHYROXINE 75 MCG TAB PO SCH (05:40)
[2020-06-06 06:46] LABS: Glucose,Whole Blood 113 mg/dL (75-99)
[2020-06-06] MEDS: INSULIN ASPART (NovoLOG) 100 UNIT/ML VIAL SQ SCH ×4 (06:57→20:55)
[2020-06-06] MEDS: ESCITALOPRAM 10 MG TAB PO SCH (08:11)
[2020-06-06] MEDS: PANTOPRAZOLE 40 MG TABLET PO SCH (08:11)
[2020-06-06] MEDS: ceFAZolin 3 GM in SODIUM CHLORIDE 0.9% 100 ML IVPB SCH ×2 (08:11→15:54)
--- NOTE | 2020-06-06 09:31 | P.PN ---
Subjective 65-year-old male was admitted for Umblicla hernia and possible bronchitis patient does have clear cellulitis with the redness and localized of temperature patient was started on Rocephin and metronidazole Rocephin will be switched to cefazolin for better coverage for skin organisms mostly streptococci.patient denied any fever chills patient denied any nausea vomiting diarrhea, his hemoglobin A1c is 6.4 receiving IV fluids and disease of around saturating at 91% on room air doesn't appear to be in respiratory distress, patient had a CT of the abdomen which showed fat-containing incarcerated a little hernia with extensive fat stranding and subcutaneous edema consistent with cellulitis and panic colitis. Calcified gallstone is also found as an incidental finding. 06/06/2020 Patient is scheduled for herniorrhaphy today. No significant overnight events redness on the abdomen is bit better Constitutional: Denied any fatigue denied any fever. Cardio vascular: denied any chest pain, palpitations Gastrointestinal denied any nausea vomiting Pulmonary: Denied any shortness of breath cough Neurologic denied any new focal deficits All inpatient medications were reviewed and appropriate changes in these medications as dictated in the interval history and assessment and plan. Objective - Vital Signs Vital signs: Vital Signs Temp 97.6 F 06/06/20 07:00 Pulse 71 06/06/20 08:13 Resp 18 06/06/20 08:13 BP 126/74 06/06/20 07:00 Pulse Ox 93 L 06/06/20 07:00 Intake & Output 06/05/20 06/06/20 06/06/20 18:59 06:59 18:59 Intake Total 675 Balance 675 Intake: Intake, IV Titration 675 Amount Sodium Chloride 0.9% 1, 525 000 ml @ 75 mls/hr IV . [id number] [facility] Rx#:[id number] cefTRIAXone 1 gm In 50 Sodium Chloride 0.9% 50 ml @ 100 mls/hr IVPB Q24HR [facility] Rx#:[id number] metroNIDAZOLE-NS PMX 500 100 mg In Saline 1 100ml.bag @ 100 mls/hr IVPB Q8HR [facility] Rx#:[id number] Other: Voiding Method Toilet Toilet # Voids 2 - Exam PHYSICAL EXAMINATION: GENERAL: The patient is alert and oriented x3, not in any acute distress.bese HEENT: Pupils are round and equally reacting to light. EOMI. No scleral icterus. No conjunctival pallor. Normocephalic, atraumatic. No pharyngeal erythema. No thyromegaly. CARDIOVASCULAR: S1 and S2 present. No murmurs, rubs, or gallops. PULMONARY: Chest is clear to auscultation, no wheezing or crackles. ABDOMEN:patient has a umbilical hernia and below the hernia there is significant redness local is of temperature, cellulitis MUSCULOSKELETAL: No joint swelling or deformity. EXTREMITIES: No cyanosis, clubbing, or pedal edema. NEUROLOGICAL: Gross neurological examination did not reveal any focal deficits. SKIN: cellulitis in the umbilicus and infraumbilical area - Labs CBC & Chem 7: 06/05/20 06:14 06/04/20 16:15 Labs: Abnormal Lab Results - Last 24 Hours (Table) 06/05/20 06/05/20 06/05/20 Range/Units 06:14 06:14 11:20 MCV 100.3 H (80.0-100.0) fL Eosinophils # 0.8 H (0-0.7) k/uL POC Glucose (mg/dL) 125 H (75-99) mg/dL Hemoglobin A1c 6.4 H (4.0-6.0) % 06/05/20 06/05/20 06/06/20 Range/Units 17:01 20:25 06:44 MCV (80.0-100.0) fL Eosinophils # (0-0.7) k/uL POC Glucose (mg/dL) 123 H 109 H 113 H (75-99) mg/dL Hemoglobin A1c (4.0-6.0) % Assessment and Plan Plan: -cellulitis and panniculitis of umblical area and umblical hernia: Patient will undergo surgical intervention from medical hernia today patient antibiotics will be switched to cefazolin and metronidazole. Patient will be can you done IV fluids -type 2 diabetes mellitus patient was started on sliding scale insulin Hypertension - nicotine abuse: Counseling was provided -DVT prophylaxis with Lovenox
[2020-06-06] MEDS: ASPIRIN 81 MG PO SCH (10:21)
[2020-06-06 11:56] LABS: Glucose,Whole Blood 98 mg/dL (75-99)
[2020-06-06 12:45] LABS: Glucose,Whole Blood 92 mg/dL (75-99)
[2020-06-06] MEDS ORDERED: IV FLUID CONTINUATION 900 ML IV ONE (12:46)
[2020-06-06] MEDS: ENOXAPARIN 40 MG/0.4 ML SYRINGE SQ SCH (12:58)
[2020-06-06] MEDS ORDERED: ONDANSETRON 4 MG/2 ML VIAL ONE (13:07)
[2020-06-06] MEDS ORDERED: DEXAMETHASONE SOD PHOSPHATE 10 MG/ML 1 ML VIAL IV ONE (13:10)
[2020-06-06] MEDS ORDERED: ONDANSETRON 4 MG/2 ML VIAL IVP ONE (13:10)
[2020-06-06] MEDS ORDERED: MIDAZOLAM 2 MG/2 ML VIAL IV ONE (13:10)
[2020-06-06] MEDS ORDERED: KETOROLAC 15 MG/ML 1 ML VIAL ONE (13:25)
[2020-06-06] MEDS ORDERED: GLYCOPYRROLATE 0.2 MG/ML 2 ML VIAL ONE (13:25)
[2020-06-06] MEDS ORDERED: ROPIVACAINE 5 MG/ML 30 ML VIAL ONE (13:25)
[2020-06-06] MEDS ORDERED: LIDOCAINE 1% INJ 10MG/ML (20 ML MDV) ONE (13:25)
[2020-06-06] MEDS ORDERED: fentaNYL (PF) 50 MCG/ML 2 ML AMP ONE (13:25)
[2020-06-06] MEDS ORDERED: NEOSTIGMINE 1 MG/ML 10 ML VIAL ONE (13:25)
[2020-06-06] MEDS ORDERED: SUCCINYLCHOLINE CHLORIDE 100 MG/5 ML SYR IV ONE (13:25)
[2020-06-06] MEDS ORDERED: PROPOFOL 10 MG/ML 20 ML VIAL IV ONE (13:25)
[2020-06-06] MEDS ORDERED: ROCURONIUM 10 MG/ML (10 ML VIAL) IV ONE (13:25)
[2020-06-06] MEDS ORDERED: MIDAZOLAM 2 MG/2 ML VIAL ONE (13:25)
[2020-06-06] MEDS ORDERED: LACTATED RINGERS 1,000 ML IV ONE ×2 (14:10→14:16)
--- NOTE | 2020-06-06 14:15 | P.OP ---
Date of Procedure: 06/06/20 Preoperative Diagnosis: Incarcerated umbilical hernia Postoperative Diagnosis: Incarcerated umbilical hernia Procedure(s) Performed: Open repair of incarcerated umbilical hernia Partial omentectomy Anesthesia: CHIARA Surgeon: Adam Rodrigues Estimated Blood Loss (ml): 5 Pathology: other (Omentum) Condition: stable Disposition: PACU Description of Procedure: The patient's placed on the operating table in the supine position. He received general C. His abdomen was prepped and draped usual fashion. The patient had a large incarcerated umbilical hernia. The skin was incised in midline. Then using cautery and sharp and blunt dissection the hernia sac was dissected free from some taste tissues. Hernia sac was opened and there is nonviable omentum within the hernia sac. This was transected with the Enseal device. The fascial defect was then closed #1 Stratafix suture. A TOM drains placed on the subcutaneous tissue. This was brought through separate stab sedation. The skin was closed brittny. Patient top she will was sent to recovery in stable condition.
[2020-06-06] MEDS ORDERED: ONDANSETRON 4 MG/2 ML VIAL IVP PRN (14:16)
[2020-06-06] MEDS ORDERED: bisacodyL 10 MG SUPP RECTAL PRN (14:16)
[2020-06-06] MEDS ORDERED: oxyCODONE-APAP 5-325MG 1 EACH TAB PO PRN (14:16)
[2020-06-06] MEDS ORDERED: NALOXONE 0.4 MG/ML 1 ML VIAL IV PRN (14:16)
[2020-06-06 14:38] LABS: Glucose,Whole Blood 102 mg/dL (75-99)
--- NOTE | 2020-06-06 15:09 | P.ANPRN ---
Procedure Note - Anesthesia - Nerve Block Performed Bilateral Rectus Abdominis Single Time Out Performed: Yes Date of Procedure: 06/06/20 Procedure Start Time: 13:10 Procedure Stop Time: :20 Location of Patient: PreOp Indication: Acute Post-Operative Pain, Analgesia, Dx/Pain Location, Requested by Surgeon Sedation Type: Sedate with meaningful contact maintained Preparation: Sterile Prep Position: Supine Catheter: None Needle Types: Pajunk Needle Gauge: 21 Ultrasound used to visualize needle placement: Yes Ultrasound used to observe medication spread: Yes Injectate: 0.5% Ropivacaine (see comment for volume) (15cc b/l) Blood Aspirated: No Pain Paresthesia on Injection Noted: No Resistance on Injection: Normal Image Stored and Saved: Yes Events: Uneventful and Well Tolerated
[2020-06-06 16:46] LABS: Glucose,Whole Blood 112 mg/dL (75-99)
[2020-06-06] MEDS: SODIUM CHLORIDE 0.9% 1,000 ML IV SCH (19:35)
[2020-06-06 20:43] LABS: Glucose,Whole Blood 165 mg/dL (75-99)
[2020-06-06] MEDS: ATORVASTATIN 20 MG TAB PO SCH (20:56)
[2020-06-06] MEDS ORDERED: CALCIUM CARBONATE 500 MG CHEWABLE PO PRN (23:00)
[2020-06-07] MEDS: ceFAZolin 3 GM in SODIUM CHLORIDE 0.9% 100 ML IVPB SCH (00:15)
[2020-06-07] MEDS: metroNIDAZOLE-NS PMX 500 MG in SALINE 1 100ML.BAG IVPB SCH ×2 (00:16→08:26)
[2020-06-07] MEDS: HYDROmorphone 0.5 MG/0.5 ML SYRINGE IVP PRN ×3 (00:21→11:21)
[2020-06-07] MEDS: LEVOTHYROXINE 75 MCG TAB PO SCH (05:54)
[2020-06-07] MEDS: PANTOPRAZOLE 40 MG TABLET PO SCH (05:54)
[2020-06-07] MEDS: SODIUM CHLORIDE 0.9% 1,000 ML IV SCH ×2 (06:02→08:25)
[2020-06-07 06:46] LABS: Glucose,Whole Blood 107 mg/dL (75-99)
[2020-06-07] MEDS: INSULIN ASPART (NovoLOG) 100 UNIT/ML VIAL SQ SCH ×2 (07:04→13:10)
--- NOTE | 2020-06-07 07:20 | P.CONS ---
History of Present Illness - Reason for Consult Consult date: 06/06/20 Panniculitis Requesting physician: Chasity Schwartz - Chief Complaint Abdominal pain and swelling x 5 days - History of Present Illness Patient is a 65-year-old male with a past medical history significant for diabetes presented to the ER at [facility] with worsening pain swelling office and likely area the patient's symptom has been going on for about 5 days with progressive swelling and some redness of the am likely area with a previous history of bilateral hernia patient did have a belly aching pain 5-6 out of 10 and no radiation patient denies having any nausea or vomiting denies any diarrhea or constipation with the symptoms the patient was evaluated by the ER physician on arrival to the ER, the patient is afebrile and did have a normal white count patient did have a CT of abdominal pelvis with tissue straight containing incarcerated umbilical hernia with extensive fat stranding and surrounding subcutaneous edema consistent with cellulitis and panniculitis patient was initially started on Rocephin and Flagyl because of his penicillin ALLERGY antibiotic was subsequent switched over to cefazolin and eventually was consulted for further management of antibiotic therapy Review of Systems Positive point has been mentioned in the HPI rest of the systems are negative Past Medical History Past Medical History: Diabetes Mellitus, Hypertension History of Any Multi-Drug Resistant Organisms: None Reported Past Surgical History: Appendectomy, Orthopedic Surgery Past Psychological History: No Psychological Hx Reported Smoking Status: Current every day smoker Past Alcohol Use History: Occasional Past Drug Use History: None Reported - Past Family History Mother History Unknown: Yes Medications and Allergies Home Medications Medication Instructions Recorded Confirmed Type Aspirin EC [Ecotrin Low Dose] 81 mg PO DAILY 06/04/20 06/04/20 History Atorvastatin [Lipitor] 20 mg PO HS 06/04/20 06/04/20 History Cetirizine HCl [Zyrtec] 10 mg PO DAILY 06/04/20 06/04/20 History Chlorthalidone 25 mg PO DAILY 06/04/20 06/04/20 History Escitalopram Oxalate [Lexapro] 10 mg PO DAILY 06/04/20 06/04/20 History Levothyroxine Sodium [Synthroid] 75 mcg PO DAILY 06/04/20 06/04/20 History Omeprazole 20 mg PO DAILY 06/04/20 06/04/20 History metFORMIN HCL [Glucophage] 1,000 mg PO BID 06/04/20 06/04/20 History Allergies Allergy/AdvReac Type Severity Reaction Status Date / Time DARRICK Inhibitors Allergy Swelling Verified 06/04/20 19:58 Penicillins Allergy Unknown Verified 06/06/20 12:51 Physical Exam Vitals: Vital Signs Temp Pulse Resp BP Pulse Ox 06/06/20 13:25 56 L 18 131/64 99 06/06/20 12:46 97.5 F L 59 L 18 119/57 95 06/06/20 08:13 71 18 06/06/20 07:00 97.6 F 71 18 126/74 93 L 06/06/20 00:35 97.5 F L 69 16 121/73 92 L 06/05/20 19:20 97.8 F 65 16 134/80 94 L 06/05/20 14:04 97.5 F L 66 16 134/69 93 L Intake and Output 06/05/20 06/06/20 06/06/20 22:59 06:59 14:59 Intake Total 50 Balance 50 Intake: IV 50 Other: Voiding Method Toilet Toilet # Voids 2 GENERAL DESCRIPTION: Elderly male lying in bed, no distress. No tachypnea or accessory muscle of respiration use. HEENT: Shows Pallor , no scleral icterus. Oral mucous membrane is dry. No pharyngeal erythema or thrush NECK: Trachea central, no thyromegaly. LUNGS: Unlabored breathing. Clear to auscultation anteriorly. No wheeze or crackle. HEART: S1, S2, regular rate and rhythm. No loud murmur ABDOMEN: Soft, periumbilical area swelling redness and minimal tenderness , no guarding or rigidity, no organomegaly EXTREMITIES: No edema of feet. SKIN: No rash, no masses palpable. NEUROLOGICAL: The patient is awake, alert, oriented x3, mood and affect normal. Results CBC & Chem 7: 06/05/20 06:14 06/04/20 16:15 Labs: Abnormal Lab Results - Last 24 Hours (Table) 06/05/20 06/05/20 06/06/20 Range/Units 17:01 20:25 06:44 POC Glucose (mg/dL) 123 H 109 H 113 H (75-99) mg/dL Assessment and Plan Assessment: 1- patient presented to hospital with abdominal pain swelling and redness this patient noticed to have a swelling of the umbilicus area and evidence of incarcerated umbilical hernia, with surrounding inflammatory changes , though CT did shows possible fat-containing however involvement of the gut not entirely excluded and will wait for the surgical aspiration of this area, hence we will a djust his antibiotic to cover for the enteric herberth rather than gram-positive skin herberth 2-penicillin ALLERGY (1) Abdominal wall cellulitis Current Visit: Yes Status: Acute Code(s): L03.311 - CELLULITIS OF ABDOMINAL WALL SNOMED Code(s): 89656019 (2) Incarcerated hernia Current Visit: Yes Status: Acute Code(s): K46.0 - UNSP ABDOMINAL HERNIA WITH OBSTRUCTION, WITHOUT GANGRENE SNOMED Code(s): 78841580 Plan: 1-we will adjust antibiotic to Rocephin 2 g daily along with Flagyl 500 every 8 2-await surgical exploration and repair and to make sure no evidence of any bowel involvement We will follow on clinical condition and cultures to further adjust medication if needed Thank you for this consultation will follow this patient with you Time with Patient: Greater than 30
[2020-06-07 08:10] VITALS: BP 106/58; PULSE 75; RESP 18; TEMP 98.3
[2020-06-07] MEDS: ENOXAPARIN 40 MG/0.4 ML SYRINGE SQ SCH (08:26)
[2020-06-07] MEDS: ESCITALOPRAM 10 MG TAB PO SCH (08:26)
[2020-06-07] MEDS: ASPIRIN 81 MG PO SCH (08:26)
[2020-06-07 10:52] LABS: Basophils % (A) 0 %; Eosinophils # (A) 0.2 k/uL (0-0.7); Eosinophils % (A) 1 %; HGB 14.7 gm/dL (13.0-17.5); Lymphocytes # (A) 1.9 k/uL (1.0-4.8); Lymphocytes % (A) 16 %; MCH 32.6 pg (25.0-35.0); MCHC 33.4 g/dL (31.0-37.0); MCV 97.8 fL (80.0-100.0); Mean Platelet Volume 7.7; Monocytes # (A) 0.7 k/uL (0-1.0); Monocytes % (A) 6 %; Neutrophils % (A) 76 %; Platelet Count 212 k/uL (150-450); RBC 4.49 m/uL (4.30-5.90); RDW 12.2 % (11.5-15.5); WBC 11.9 k/uL (3.8-10.6)
[2020-06-07 11:16] LABS: African American GFR (CKD) >90 (>60 ml/min/1.73 sqM); Anion Gap 5 mmol/L; Blood Urea Nitrogen 11 mg/dL (9-20); Calcium 9.1 mg/dL (8.4-10.2); Carbon Dioxide 32 mmol/L (22-30); Chloride 100 mmol/L (98-107); Glucose 126 mg/dL (74-99); Non-African American GFR(CKD) >90 (>60 ml/min/1.73 sqM); Potassium 4.5 mmol/L (3.5-5.1); Sodium 137 mmol/L (137-145)
--- NOTE | 2020-06-07 11:16 | P.PN ---
Subjective 65-year-old male was admitted for Umblicla hernia and possible bronchitis patient does have clear cellulitis with the redness and localized of temperature patient was started on Rocephin and metronidazole Rocephin will be switched to cefazolin for better coverage for skin organisms mostly streptococci.patient denied any fever chills patient denied any nausea vomiting diarrhea, his hemoglobin A1c is 6.4 receiving IV fluids and disease of around saturating at 91% on room air doesn't appear to be in respiratory distress, patient had a CT of the abdomen which showed fat-containing incarcerated a little hernia with extensive fat stranding and subcutaneous edema consistent with cellulitis and panic colitis. Calcified gallstone is also found as an incidental finding. 06/06/2020 Patient is scheduled for herniorrhaphy today. No significant overnight events redness on the abdomen is bit better. 06/07/2020 Patient underwent partial omentectomy and repair of incarcerated of medical hernia patient has abdominal binder increased because of which I didn't examine the surgical site area patient is feeling well passing gas did not move his robert l. Constitutional: Denied any fatigue denied any fever. Cardio vascular: denied any chest pain, palpitations Gastrointestinal denied any nausea vomiting Pulmonary: Denied any shortness of breath cough Neurologic denied any new focal deficits All inpatient medications were reviewed and appropriate changes in these medications as dictated in the interval history and assessment and plan. Objective - Vital Signs Vital signs: Vital Signs Temp 98.3 F 06/07/20 07:00 Pulse 75 06/07/20 07:00 Resp 18 06/07/20 07:00 BP 106/58 06/07/20 07:00 Pulse Ox 92 L 06/07/20 07:00 Intake & Output 06/06/20 06/07/20 06/07/20 18:59 06:59 18:59 Intake Total 1350 Output Total 5 320 Balance 1345 -320 Weight 129.727 kg Intake: IV 1350 Output: Drainage 20 Abdomen 20 Urine 300 Estimated Blood Loss 5 Other: Voiding Method Toilet Toilet Toilet # Voids 2 - Exam PHYSICAL EXAMINATION: GENERAL: The patient is alert and oriented x3, not in any acute distress.bese HEENT: Pupils are round and equally reacting to light. EOMI. No scleral icterus. No conjunctival pallor. Normocephalic, atraumatic. No pharyngeal erythema. No thyromegaly. CARDIOVASCULAR: S1 and S2 present. No murmurs, rubs, or gallops. PULMONARY: Chest is clear to auscultation, no wheezing or crackles. ABDOMEN: She has an abdominal binder in place does have bowel sounds. MUSCULOSKELETAL: No joint swelling or deformity. EXTREMITIES: No cyanosis, clubbing, or pedal edema. NEUROLOGICAL: Gross neurological examination did not reveal any focal deficits. SKIN: cellulitis in the umbilicus and infraumbilical area - Labs CBC & Chem 7: 06/07/20 10:21 06/04/20 16:15 Labs: Abnormal Lab Results - Last 24 Hours (Table) 06/06/20 06/06/20 06/06/20 Range/Units 14:36 16:44 20:42 WBC (3.8-10.6) k/uL Neutrophils # (1.3-7.7) k/uL POC Glucose (mg/dL) 102 H 112 H 165 H (75-99) mg/dL 06/07/20 06/07/20 Range/Units 06:44 10:21 WBC 11.9 H (3.8-10.6) k/uL Neutrophils # 9.0 H (1.3-7.7) k/uL POC Glucose (mg/dL) 107 H (75-99) mg/dL Assessment and Plan Plan: -cellulitis and panniculitis of umblical area and umblical hernia: Patient is a status post hernia repair and omentectomy yesterday patient is presently on cefazolin and metronidazole. -type 2 diabetes mellitus patient was started on sliding scale insulin Hypertension: Patient blood pressures were not elevated throughout this h ospitalization I do not believe patient will need chlorthalidone although patient will be asked to check his blood pressures twice a times a day and chlorthalidone will be discontinued patient did lose significant weight recently because of his his blood pressure and blood sugars are better controlled now. - nicotine abuse: Counseling was provided -DVT prophylaxis with Lovenox
[2020-06-07 11:36] LABS: Glucose,Whole Blood 113 mg/dL (75-99)
--- NOTE | 2020-06-07 12:29 | P.DS ---
Providers Date of admission: 06/04/20 19:21 Expected date of discharge: 06/07/20 Attending physician: Adam Pettit Consults: 06/05/20 08:58 Consult Physician Routine Consulting Provider: Dunia Joseph Consult Reason/Comments: medical management Do you want consulting provider notified?: Yes 06/05/20 14:39 Consult Physician Routine Consulting Provider: Amanda Burgess Consult Reason/Comments: cellulitis Do you want consulting provider notified?: Yes Primary care physician: Viet Mireles [facility] Course: Discharge diagnosis 1. Incarcerated umbilical hernia Status post open repair of incarcerated umbilical hernia and partial omentectomy 2. Abdominal cellulitis and panniculitis Hospital course This is a 65-year-old male with a known history of diabetes, hypertension, hypothyroidism, nicotine dependence and prior appendectomy. Patient presents to the emergency room with complaints of worsening his umbilical hernia. He's had his umbilical hernia for a couple of years. He says over the last 5 days he's had increase in size of the umbilical hernia. Also there is been evidence of redness around the hernia. CAT scan did show fat-containing incarcerated Umbili hoa hernia With extensive fat stranding with surrounding subcutaneous edema consistent with cellulitis and panniculitis. Patient is now status post open repair of incarcerated umbilical hernia and partial omentectomy with Dr. pettit. Patient tolerated surgery well. He's tolerating diet. Denies any nausea or vomiting. He is passing gas. He is afebrile. He has been up and ambulating. He is stable for discharge home. Patient will be discharged with Ceftin twice a day for 10 days per ID recommendations. Physician Cadastral Engineer note has been reviewed by physician. Signing provider agrees with the documented findings, assessment, and plan of care. Patient Condition at Discharge: Stable Plan - Discharge Summary Discharge Rx Participant: Yes New Discharge Prescriptions: New oxyCODONE HCL/ACETAMINOPHEN [Percocet 5-325 mg] 1 tab PO Q4HR PRN 3 Days #18 tab PRN Reason: Pain Cefuroxime Axetil [Ceftin] 500 mg PO BID 10 Days #20 tab Docusate [Colace] 100 mg PO BID #30 capsule Continue Omeprazole 20 mg PO DAILY Cetirizine HCl [Zyrtec] 10 mg PO DAILY metFORMIN HCL [Glucophage] 1,000 mg PO BID Levothyroxine Sodium [Synthroid] 75 mcg PO DAILY Escitalopram Oxalate [Lexapro] 10 mg PO DAILY Atorvastatin [Lipitor] 20 mg PO HS Aspirin EC [Ecotrin Low Dose] 81 mg PO DAILY Discontinued Chlorthalidone 25 mg PO DAILY Discharge Medication List Aspirin EC [Ecotrin Low Dose] 81 mg PO DAILY 06/04/20 [History] Atorvastatin [Lipitor] 20 mg PO HS 06/04/20 [History] Cetirizine HCl [Zyrtec] 10 mg PO DAILY 06/04/20 [History] Escitalopram Oxalate [Lexapro] 10 mg PO DAILY 06/04/20 [History] Levothyroxine Sodium [Synthroid] 75 mcg PO DAILY 06/04/20 [History] Omeprazole 20 mg PO DAILY 06/04/20 [History] metFORMIN HCL [Glucophage] 1,000 mg PO BID 06/04/20 [History] Cefuroxime Axetil [Ceftin] 500 mg PO BID 10 Days #20 tab 06/07/20 [Rx] Docusate [Colace] 100 mg PO BID #30 capsule 06/07/20 [Rx] oxyCODONE HCL/ACETAMINOPHEN [Percocet 5-325 mg] 1 tab PO Q4HR PRN 3 Days #18 tab 06/07/20 [Rx] Follow up Appointment(s)/Referral(s): Viet Mireles DO [Primary Care Provider] - 3 Days Adam Pettit MD [STAFF PHYSICIAN] - 1 Week Activity/Diet/Wound Care/Special Instructions: No driving while taking Percocet No lifting over 10 pounds You may shower. No soaking or tub baths For 2 weeks Very light activity until you are reevaluated at your follow up appointment with your surgeon Keep a log of TOM drain output and bring with you to your follow-up appointment Milk/strip drains 2-3 times a day Discharge Disposition: HOME SELF-CARE
--- NOTE | 2020-06-07 15:28 | PN ---
PROGRESS NOTE DATE OF SERVICE: 06/07/2020 REASON FOR FOLLOWUP: Incarcerated abdominal umbilical hernia and concern for cellulitis. INTERVAL HISTORY: The patient is currently afebrile. Patient is feeling better. Breathing comfortably. Overall, abdominal pain is improved, status post surgical repair yesterday. No chest pain, no cough and no diarrhea. PHYSICAL EXAMINATION: Blood pressure is 106/58 with a pulse of 75, temperature is [QAMARKER] He is 92% on room air. General description is an elderly male up in bed, in no distress. RESPIRATORY SYSTEM: Unlabored breathing, clear to auscultation anteriorly. HEART: S1, S2. Regular rate and rhythm. ABDOMEN: Soft, no pain, is currently dressed. Did have a TOM drain with some secretion. LABS: Hemoglobin is 14.1 white count is 11.9, creatinine 0.75. DIAGNOSTIC IMPRESSION AND PLAN: Patient with incarcerated umbilical hernia, status post surgical repair with presence of omental fat. No evidence of any bowel involvement, short course of oral Ceftin on discharge and close outpatient followup. Discussed with the nurse practitioner for admitting team. MMODL / IJN: [id number] / VIKAS
== END 2020-06-07 13:50 | disposition home or self-care (01) | DRG 354 ==
LOC: EC 15:39 → 4SSUR 19:21
PROVIDERS: ADMIT Surgery; ATTEND Surgery
PROC: 0WQF0ZZ Repair Abdominal Wall, Open Approach (ICD-10-PCS; principal; 2020-06-06 14:45)
PROC: 0DBU0ZZ Excision of Omentum, Open Approach (ICD-10-PCS; principal; 2020-06-06 14:45)
DX: K42.0 Umbilical hernia with obstruction, without gangrene (principal); L03.311 Cellulitis of abdominal wall; E03.9 Hypothyroidism, unspecified; E11.9 Type 2 diabetes mellitus without complications; F17.200 Nicotine dependence, unspecified, uncomplicated; I10 Essential (primary) hypertension; K80.20 Calculus of gallbladder without cholecystitis without obstruction; M79.3 Panniculitis, unspecified; J40 Bronchitis, not specified as acute or chronic; Z79.82 Long term (current) use of aspirin; Z79.84 Long term (current) use of oral hypoglycemic drugs; Z79.890 Hormone replacement therapy; Z79.899 Other long term (current) drug therapy; Z88.0 Allergy status to penicillin; Z90.49 Acquired absence of other specified parts of digestive tract; Z87.898 Personal history of other specified conditions; Z98.890 Other specified postprocedural states
CPT/HCPCS: 36415; 64488; 74177; 80048; 80053; 81003; 83036; 83605; 83690; 85025; 85610; 85730; 88302; 99285

== ENCOUNTER → 2024-01-26 | Outpatient (CLI) | payer MEDICARE ==
--- NOTE | 2024-02-05 22:29 | CTL ---
EXAMINATION TYPE: CT Low Dose Lung DATE OF EXAM ORDERED: 01/26/2024 HISTORY: 68-year-old male Z87.891, tobacco use, former smoker with 47 pack-year history. Lung cancer screening CT DLP: 164.[address] CTDI: 4.3 mGy Automated exposure control for dose reduction was used. SCREENING VISIT: Baseline COMPARISON: None TECHNIQUE: Low dose computed tomography scan was performed through the chest at 1 mm thick sections a nd reconstructed images in multiple planes at 1 mm and [address] DIAGNOSTIC QUALITY: Satisfactory FINDINGS: The heart is normal size without pericardial effusion. Three-vessel coronary artery calcifications ar e present. Aorta normal caliber with bovine configuration to the aortic arch and scattered mild atherosclerotic calcifications. No thoracic lymphadenopathy by CT size criteria. Mild diffuse bronchial wall thickening. Some dependent hazy densities in the lungs suggesting areas o f atelectasis, greatest at the lung bases. Minimal emphysematous change. No consolidation or pleural effusion. Tiny hiatal hernia. There appears to be some underlying mild fatty infiltration of the liver. Underly ing gallstones. No abnormal gallbladder distention. Bones: Mild degenerative disc disease mid to lower thoracic spine. IMPRESSION: 1. LungRADS 1, negative. No suspicious pulmonary nodules. 2. COPD with minimal emphysema. Prominent hazy dependent atelectasis. CT LUNG RAD AND CT CHEST RECOMMENDATION: Lung-Rad 1 Negative: Continue annual screening with LDCT in 12 months. S Modifier (other clinically significant findings): None
== END | disposition home or self-care (01) ==
LOC: RADCTMAIN 09:27
PROVIDERS: ATTEND Family Medicine
DX: Z12.2 Encounter for screening for malignant neoplasm of respiratory organs (principal); Z87.891 Personal history of nicotine dependence; J43.9 Emphysema, unspecified
CPT/HCPCS: 71271